=== PATIENT | male | born 1970 | race Hispanic/Latino ===

== ENCOUNTER 2024-09-13 10:28 | Emergency (ER) | payer MEDICARE ==
[~2024-09-13] VITALS: Ht 170.2 cm; Wt 84.4 kg
[2024-09-13 11:12] LABS: BASOPHILS % 0.6 % (0.0-1.0); EOSINOPHILS # (AUTO) 0.3 (0.0-0.4); EOSINOPHILS % 4.1 % (0.0-6.0); HEMATOCRIT 43.7 % (38.2-49.6); HEMOGLOBIN 14.8 g/dL (14.0-18.0); LYMPHOCYTES # (AUTO) 2.2 (1.0-3.2); LYMPHOCYTES % 33.9 % (18.0-39.1); MEAN CORPUSCULAR HGB CONC 33.9 g/dL (31-35); MEAN CORPUSCULAR VOLUME 88.5 fL (81-99); MONOCYTES # (AUTO) 0.5 (0.2-0.8); MONOCYTES % 7.3 % (4.4-11.3); NEUTROPHILS # (AUTO) 3.5 (2.1-6.9); NEUTROPHILS % 53.5 % (38.7-80.0); PLATELET COUNT 158 x10e3/uL (140-360); RED BLOOD COUNT 4.94 x10e6/uL (4.3-5.7); RED CELL DISTRIBUTION WIDTH 13.2 % (11.7-14.4); WHITE BLOOD COUNT 6.54 x10e3/uL (4.8-10.8)
[2024-09-13 11:27] LABS: PROTHROMBIN TIME 13.7 seconds (11.9-14.5)
[2024-09-13 11:38] LABS: ALBUMIN 4.2 g/dL (3.5-5.0); ALBUMIN/GLOBULIN RATIO 1.2 (0.8-2.0); BILIRUBIN,TOTAL 1.5 mg/dL (0.2-1.2); CALCIUM 9.4 mg/dL (8.4-10.2); CREATININE, SERUM 0.82 mg/dL (0.72-1.25); TOTAL PROTEIN 7.6 g/dL (6.5-8.1)
[2024-09-13] MEDS ORDERED: SODIUM CHLORIDE 0.9% 100 ML ONE (11:56)
[2024-09-13] MEDS ORDERED: IOPAMIDOL 370 MG/ML 100 ML INFUS..BTL INJ ONE (11:56)
[2024-09-13] MEDS: KETOROLAC TROMETHAMINE 30 MG/ML VIAL IV ONE (12:27)
[2024-09-13] MEDS: DEXAMETHASONE SOD PHOS 10 MG/1 ML VIAL IV ONE (12:28)
[2024-09-13] MEDS ORDERED: NAPROXEN250 MG PO (13:11)
[2024-09-13 13:14] VITALS: PULSE 78; RESP 16; TEMP 98.9
[2024-09-13 13:15] VITALS: BP 138/97; PULSE 74; RESP 16; TEMP 98.5; O2SAT 98
== END 2024-09-13 13:41 | disposition home or self-care (01) ==
LOC: ER 10:36
DX: R20.0 Anesthesia of skin (principal); R20.2 Paresthesia of skin; E11.65 Type 2 diabetes mellitus with hyperglycemia; G40.909 Epilepsy, unspecified, not intractable, without status epilepticus; Z86.73 Personal history of transient ischemic attack (TIA), and cerebral infarction without residual deficits; Z95.0 Presence of cardiac pacemaker
CPT/HCPCS: 36415; 70496; 70498; 80053; 84484; 85025; 85610; 93005; 99284; J1100; J1885; J7050; Q9967